=== PATIENT | male | born 1970 | race Caucasian/White ===

== ENCOUNTER → 2019-07-19 12:51 | Outpatient (CLI) | payer BC, SELFPAY ==
--- NOTE | 2019-07-19 13:04 | VDUE_ITS ---
Reason For Study: Hx of DVT jugular vein Right Proximal Left Proximal Right jugular vein is spontaneous, widely Left jugular vein is spontaneous, widely patent, phasic, with no intraluminal patent, phasic, with no intraluminal echogenicity noted. echogenicity noted. Right subclavian vein is spontaneous, widely Left subclavian vein is spontaneous, widely patent, phasic, with no intraluminal patent, phasic, with no intraluminal echogenicity noted. echogenicity noted. Right Lower Arm Left Arm Right radial vein is compressible. Left axillary vein is spontaneous, patent, Right ulnar vein is compressible. phasic, competent, compressible and Right Arm demonstrates augmentation. Right axillary vein is spontaneous, patent, Left brachial vein is compressible. phasic, competent, compressible and Left cephalic vein is compressible. demonstrates augmentation. Left basilic vein is compressible. Right brachial vein is compressible. Left Lower Arm Right cephalic vein is compressible. Left radial vein is compressible. Right basilic vein is compressible. Left ulnar vein is compressible. Patient Safety Prelim to [place]. Interpretation Summary Deep veins of the upper extremities are bilaterally patent and compressible segmentally. There is no evidence of deep vein thrombosis on either side. The superficial veins of the upper extremities, the basilic and cephalic veins, are patent and compressible bilaterally. There is no evidence of superficial thrombophlebitis in the upper extremities involving the veins imaged. Ordering Physician: Ac Rodgers Referring Physician: Sal Brooks Performed By: Vero Ledbetter RVT ?
== END ==
PROVIDERS: PCP Family Medicine; Referring Provider Surgery Vascular Surgery; Visit Provider Surgery Vascular Surgery
DX: Z86.718 Personal history of other venous thrombosis and embolism (principal)
CPT/HCPCS: 93970